=== PATIENT | male | born 1995 | race Caucasian/White ===

== ENCOUNTER 2017-03-29 15:02 | Inpatient (IN) | payer OTHER ==
--- NOTE | ~2017-03-29 | HP ---
Unit #: [id number] #: [id number] Patient: AZAR COLON [id number] [facility] [address] [place] [address] [id number] I MR#: [id number] NAME: AZAR COLON. ROOM: P208 Age: 22 Sex: M Admission Date: 03/29/2017 : 1995 Attending Physician: Alonso Mack M.D. Admitting Physician: Alonso Mack M.D. Primary Care Physician: Shanice Alcantar M.D. HISTORY AND PHYSICAL HISTORY OF PRESENT ILLNESS Azar is a 22 year old admitted to [address] [place] [address] because of his continued drug use. He shoots heroin. He was released from [facility] on 01/25/17 and has been using IV heroin ever since that time. PAST MEDICAL HISTORY 1. Long history of illicit substance abuse to include IV heroin. 2. History of detox seizures. PAST SURGICAL HISTORY Nothing reported. ALLERGIES No known drug allergies. SOCIAL HISTORY Dips 2 cans of snuff on a daily basis. Admits to alcohol on occasion. Has a long history of illicit substance abuse to include IV heroin and IV methamphetamine. FAMILY HISTORY Medically noncontributory. REVIEW OF SYSTEMS CONSTITUTIONAL: No fever or chills. HEENT: Denies any sore throat, ear pain or runny nose. CARDIOVASCULAR: Denies chest pain, irregular heart rhythm or palpitations. CHEST: Denies shortness of breath or cough. No hemoptysis. GASTROINTESTINAL: Denies nausea, vomiting, diarrhea or chronic constipation. ENDOCRINE: Denies history of increased thirst or urination. No recent significant weight loss or gain. GENITOURINARY: Denies dysuria, frequency, or hematuria. SKIN: Denies any rashes. HEMATOLOGIC: Denies history of increased bleeding or bruising. MUSCULOSKELETAL: Denies any hot, swollen joints. No generalized muscle pain. NEUROLOGIC: Denies problems with vision or speech. No frequent, severe headaches. No numbness, tingling or weakness in any extremities. Denies loss of bladder or bowel control. CURRENT MEDICATIONS Detox protocol. Unit #: [id number] #: [id number] Patient: AZAR COLON PHYSICAL EXAMINATION GENERAL: Alert, well-nourished, in no apparent distress. VITAL SIGNS: Blood pressure 116/86, heart rate 100, respirations 16, temperature 98.6. WEIGHT: 150. HEIGHT: 5 feet 5 inches. SKIN: Warm and dry without rash or lesion. HEENT: Normocephalic. TMs not viewed. Oral and nasal passages clear. Conjunctivae clear. PERRLA. EOMs intact. NECK: Supple without lymphadenopathy or thyromegaly. HEART: Regular rate and rhythm without murmur. LUNGS: Clear. ABDOMEN: Soft, nontender. : Not done. EXTREMITIES: No evidence of cyanosis, clubbing or edema. Moves all without focal deficit. NEUROLOGICAL: Grossly within normal limits. Cranial Nerves: II: Visual blankenship are intact. III, IV AND : Extraocular movements are intact. Pupils are equal, round and reactive to light. V: Facial sensation is grossly normal. VII: Facial movements and expression are normal. VIII: Auditory acuity grossly intact. IX, X: Uvula is midline. Phonation is normal. XI: Patient shrugs shoulders and turns head normally. XII: Tongue protrudes in the midline. Sensory and Motor Function: Sensory and motor sensation is grossly normal. Motor: moves all extremities well. Coordination: Gait is normal. Deep Tendon Reflexes: Intact. IMPRESSION Psychiatric admission. RECOMMENDATIONS PSYCHIATRIC: Per psychiatrist. MEDICAL: See no contraindications to participate in facility's activities. MEDICAL PROGNOSIS Good. MEDICAL CONDITION Stable. Dictated by... Ivanna Silvestre P.A.-C. for Tram Finch/gaye TD: 03/29/2017 19:38 JOB #: [id number] Unit #: [id number] #: [id number] Patient: AZAR COLON HISTORY AND PHYSICAL Page 1 of 1 X Ivanna Silvestre HISTORY AND PHYSICAL
--- NOTE | ~2017-03-29 | PA ---
Unit #: [id number] #: [id number] Patient: AZAR LAST [id number] [facility] [address] [place] [address] [id number] I MR#: [id number] NAME: AZAR LAST ROOM: P208 Age: 22 Sex: M Admission Date: 03/29/2017 : 1995 Date of Assessment: 03/30/2017 Attending Physician: Alonso Mack M.D. Admitting Physician: Alonso Mack M.D. Primary Care Physician: Shanice Alcantar M.D. PSYCHIATRIC ASSESSMENT INFORMANTS The patient reliability, fair informant and chart reliability, good. CHIEF COMPLAINT Detox. HISTORY OF PRESENT ILLNESS Azar Last is a 22-year-old male, seen on 03/29/[address] [place] [address]. The patient admitted with heroin withdrawals, needing detox. The patient has a history of previous inpatient treatment at [facility] for detox in 2014. Lives at home with father. The patient reports he needs help. History of addiction for the last 4 years. Reported that he was in long term from 05/2016 and released on 01/25/2017. Relapsed on heroin on half a g IV, last use yesterday. The patient reports withdrawal symptoms. The patient scored 18 on COWS scale. The patient reported tobacco use, age of onset 12; alcohol, age of onset 16; marijuana, age of onset 18; opioid, age of onset 18; and amphetamine, age of onset 18. The patient reported history of blackouts, withdrawal symptom, and IV drug use. No history of any HIV or hepatitis. Currently, reporting abdominal cramping, muscle cramping, diarrhea, irritability, night sweats, nervousness, poor concentration, restlessness, sleep problem, and tremor. PAST PSYCHIATRIC HISTORY Remarkable for history of previous treatment as mentioned above. FAMILY HISTORY AND SOCIAL HISTORY The patient has poor support system. No history of abuse. MEDICAL HISTORY Unremarkable for any chronic medical illness. Musculoskeletal; muscle strength and tone, no atrophy or abnormal movement. Gait normal. MEDICATION HISTORY None. ALLERGIES No known drug allergies. SUBSTANCE ABUSE HISTORY Please see above. REVIEW OF SYSTEMS HEENT: Eyes, clear. Ears, nose, mouth, and throat; clear. Unit #: [id number] #: [id number] Patient: AZAR LAST CARDIOVASCULAR: Unremarkable. RESPIRATORY: Unremarkable. GI: Unremarkable. : Unremarkable. SKIN: Unremarkable. LYMPH NODE: Unremarkable. NEUROLOGIC: Unremarkable. ENDOCRINE: Unremarkable. HEMATOLOGIC: Unremarkable. ALLERGIC/IMMUNOLOGIC: Unremarkable. MUSCULOSKELETAL: Muscle strength and tone, no atrophy or abnormal movement. Gait normal. MENTAL STATUS EXAMINATION CONSTITUTIONAL: Measurement of vital signs; temperature 98.0, heart rate 89, respiratory rate 18, and blood pressure 114/66. Height 5 feet 5 inches and weight 150 pounds. GENERAL APPEARANCE: The patient dressed casually. The patient did not show any facial deformity. MUSCULOSKELETAL: Please see above. PSYCHIATRIC EXAMINATION Description of speech; regular rate, normal volume, normal articulation, and coherent. Description of thought process, goal directed. Description of association, intact. Description of abnormal psychotic thinking; the patient denied any hallucinations or delusions, but mood sad, dysphoric, and substance abuse. Description of the patient's judgment: Concerning everyday activity, poor. Social situation, poor. Concerning psychiatric condition, poor. Complete mental status examination; oriented in time, place, and person. Recent and remote memory, fair. Attention span and concentration, fair. Language, able to name object and repeat phrases. Fund of knowledge, aware of current event and passive vocabulary intact. Mood and affect, sad and dysphoric. Insight and judgment, fair to poor. ASSETS AND LIABILITIES Assets, the patient is articulate and able to take care of his ADL. Liability, history of depression and substance abuse. ADMITTING DIAGNOSES Psychiatric: Opioid use disorder, severe, F11.20 and mood disorder, not otherwise specified, F32.9. Secondary diagnosis: Deferred. Medical diagnosis: None. Stressors: Psychosocial stressors. PSYCHIATRIC PLAN AND TREATMENT GOAL AND DISCHARGE PLAN 1. Advised to admit the patient on the inpatient unit. Provide safe, supportive, and structured environment. 2. Ordered labs; CBC, CMP, UA, and UDS. 3. Detox protocol and detox monitoring. 4. If needed, consider further adjustment of medication or consider SSRI for depression. The patient to attend group therapy, individual therapy, and medication management. Unit #: [id number] #: [id number] Patient: AZAR LAST TREATMENT GOAL To attain euthymic mood, gain insight into his problem, and learn coping skills. DISCHARGE PLAN Plan to stabilize the patient and consider followup in outpatient program. ESTIMATED LENGTH OF STAY 3 to 5 days. Dictated by... Tram Mace/adeel TD: 03/30/2017 16:21 JOB #: [id number] PSYCHIATRIC ASSESSMENT Page 1 of 1 X Alonso Mack MD PSYCHIATRIC ASSESSMENT
--- NOTE | ~2017-03-29 | DS ---
Unit #: [id number] #: [id number] Patient: ЕЛЕНА COLON [id number] [facility] [address] [place] [address] [id number] I MR#: [id number] NAME: ЕЛЕНА COLON. ROOM: P208 Age: 22 Sex: M Admission Date: 03/29/2017 : 1995 Discharge Date: 03/31/2017 Attending Physician: Alonso Mack M.D. Primary Care Physician: Shanice Alcantar M.D. DISCHARGE SUMMARY REASON FOR ADMISSION Detox. DIAGNOSTIC STUDIES LABORATORY DATA: Remarkable for urine drugs screen positive for marijuana and opiate. HOSPITAL COURSE The patient was admitted to inpatient unit on March 29 and discharged on 03/31/2017. The patient was treated with detox protocol, detox monitoring, group therapy, individual therapy, and chemical dependency group. The patient responded well with the above modalities of treatment. Subsequently the patient was discharged with a plan to follow up in outpatient program. DISCHARGE MEDICATIONS None. DISCHARGE DIAGNOSES PSYCHIATRIC: Opiate use disorder, severe, F11.20. Cannabis abuse moderate, F12.20. Mood disorder not otherwise specified, F32.9. SECONDARY: Deferred. MEDICAL: None. STRESSORS: Psychosocial stressor. FOLLOWUP CARE The patient to follow up in outpatient clinic as per high school social studies teacher. CONDITION AT DISCHARGE The patient pleasant, cooperative. Denied any psychotic symptom or any suicidal ideation. PROGNOSIS Guarded. DIET AND ACTIVITY As tolerated. Dictated by... Alonso Mack M.D. Unit #: [id number] #: [id number] Patient: ЕЛЕНА COLON NKECHI/cassandrag TD: 04/01/2017 12:05 JOB #: [id number] DISCHARGE SUMMARY Page 1 of 1 X Alonso Mack MD X DISCHARGE SUMMARY
--- NOTE | ~2017-03-29 | PN ---
Unit #: [id number] #: [id number] Patient: AZAR COLON [id number] [facility] [address] [place] [address] [id number] MR#: [id number] NAME: AZAR COLON ROOM: P208 Age: 22 Sex: M Admission Date: 03/29/2017 : 1995 Attending Physician: Alonso Mack M.D. Admitting Physician: Alonso Mack M.D. Primary Care Physician: Tram Tripathi PROGRESS NOTES DATE 03/30/2017 DISCUSSION Azar is a 22-year-old male seen on 03/30/2017. The patient interviewed, chart reviewed. Obtained information from nursing staff. The patient was compliant and cooperative, seclusive, isolative, guarded, withdrawn, isolative. The patient's vital signs 98.6, 85, 18, 116/75. Complete review of systems unremarkable. MENTAL STATUS EXAMINATION General appearance, the patient dressed casually. Attention span and concentration fair. Oriented to place and person. Mood and affect sad, dysphoric, flat, withdrawn, isolative, guarded. Denied any suicidal ideation or homicidal ideation. Recent and remote poor. Insight and judgement poor. DIAGNOSES Opioid use disorder severe F11.20 ASSESSMENT/PLAN Advise to continue with current medication and therapeutic protocol. If needed consider further adjustment of medication. Dictated by... Tram Mace/marielle TD: 03/30/2017 23:29 JOB #: [id number] [facility] PROGRESS NOTES Page 1 of 1 X Alonso Mack MD X PROGRESS NOTE
[2017-03-31 09:30] LABS: BASOPHIL% 0.7 % (0-2.5); EOSINOPHIL# 0.2 X10e3 (0-0.7); EOSINOPHIL% 2.4 % (0.0-7.0); HEMATOCRIT 42.2 % (38.0-50.0); HEMOGLOBIN 14.3 gm/dL (13.0-16.0); LYMPHOCYTE# 1.8 X10e3 (1.0-3.5); LYMPHOCYTE% 26.5 % (17.0-45.0); MEAN CELL VOLUME 91.3 FL (83-96); MEAN CORPUSCULAR HEMOGLOBIN 30.9 PG (28-34); MEAN CORPUSCULAR HGB CONC 33.8 g/dL (30-36); MEAN PLATELET VOLUME 9.8 FL (6.5-11.5); MONOCYTE# 0.5 X10e3 (0-1.0); MONOCYTE% 7.3 % (3.0-12.0); NEUTROPHIL# 4.2 X10e3 (1.5-7.1); NEUTROPHIL% 63.1 % (40-75); PLATELET COUNT 206 X10e3 (140-420); RED BLOOD COUNT 4.62 X10e (3.90-5.60); RED CELL DISTRIBUTION WIDTH 12.7 % (11.0-15.5); WHITE BLOOD COUNT 6.7 X10e3 (4.0-10.5)
[2017-03-31 09:47] LABS: DIFF IND NO
[2017-03-31 09:57] LABS: ALBUMIN SERUM 4.3 g/dL (3.5-5.0); BILIRUBIN,TOTAL 0.4 mg/dL (0.2-2.0); CALCIUM SERUM 9.4 mg/dL (8.4-10.2); CREATININE SERUM 0.8 mg/dL (0.6-1.4); POTASSIUM 4.6 mmol/L (3.5-5.1); PROTEIN TOTAL SERUM 7.3 g/dL (6.0-8.3)
== END 2017-03-31 11:35 | DRG 897 ==
LOC: P2S 15:02
PROVIDERS: Psychiatry & Neurology Psychiatry
PROC: HZ2ZZZZ Detoxification Services for Substance Abuse Treatment (ICD-10-PCS; principal; 2017-03-29)
DX: F11.20 Opioid dependence, uncomplicated (principal); F39 Unspecified mood [affective] disorder; F32.9 Major depressive disorder, single episode, unspecified; F17.210 Nicotine dependence, cigarettes, uncomplicated; F12.20 Cannabis dependence, uncomplicated
CPT/HCPCS: 80053; 85025; 86592